=== PATIENT | female | born 1930 | race Two or more races ===

== ENCOUNTER 2019-08-13 13:35 | Emergency (ER) | payer MEDICAID ==
[~2019-08-13] VITALS: Ht 152.4 cm; Wt 55.0 kg
[2019-08-13] MEDS ORDERED: ACETAMINOPHEN 325MG TABLET PO STA (17:49)
[2019-08-13] MEDS ORDERED: SODIUM CHLORIDE 0.9% 1,000 ML IV ONE (17:49)
[2019-08-13 18:14] LABS: BASOPHILS % 0.1 % (0.0-2.0); EOSINOPHILS % 1.5 % (0.0-5.0); HEMOGLOBIN. 10.2 g/dL (12.0-16.0); MEAN CORPUSCULAR VOLUME 88.5 fL (81.0-99.0); MEAN PLATELET VOLUME 7.8 fl (7.4-10.4); MONOCYTES % 5.2 % (2.0-8.0); NEUTROPHILS % 78.2 % (40.0-76.0); PLATELET 203 x1000/uL (130-400); RED BLOOD CELL COUNT 3.39 mill/uL (4.2-5.4); RED CELL DISTRIBUTION WIDTH 14.6 % (11.6-14.6)
[2019-08-13 18:17] LABS: CHLORIDE 117 mEq/L (98-107)
[2019-08-13] MEDS ORDERED: IBUPROFEN 600MG TABLET PO ONE (19:45)
[2019-08-13 20:11] VITALS: BP 119/51
== END 2019-08-13 20:11 | disposition home or self-care (01) ==
LOC: ER 13:35 → CANBEDREQ 23:24
DX: R55 Syncope and collapse (principal); E86.0 Dehydration; R51 Headache
CPT/HCPCS: 36415; 70450; 71045; 80053; 84484; 85025; 93005; 96360; 99284; J7030; Z7610